=== PATIENT | female | born 1960 ===

== ENCOUNTER 2016-12-23 13:08 | Emergency (ER) | payer OTHER ==
[2016-12-23 13:09] VITALS: BMI 29.0
[2016-12-23 13:13] VITALS: BP 141/80; PULSE 83; RESP 16; TEMP 98.8; O2SAT 100
--- NOTE | 2016-12-23 13:50 | ED PDOC ---
HPI: General Adult Time Seen by Provider: 12/23/16 13:48 Chief Complaint (Nursing): Abdominal Pain Chief Complaint (Provider): VAGINAL PRUIRITIS History Per: Patient (56 Y/O FEMALE [employer] 1 YEAR PRIOR HERE FOR EVALUATION OF VAGINAL DISCHARGE ITCHY/YELLOWISH IN NATURE. DENIES ANY FEVERS/CHILLS. STATES IS SEXUALLY ACTIVE WITH ONLY NO NEW PARTNERS. NO HISTORY OF STD. HAS HAD PAP LAST YEAR WITH EVALUATION OF POLPY. NOTES MINIMAL IRRITATION WITH URINATION. NO HEMATURIA/NO URINARY FREQUENCY.) Past Medical History Reviewed: Historical Data, Nursing Documentation, Vital Signs Vital Signs: Last Vital Signs Temp 98.8 F 12/23/16 13:12 Pulse 83 12/23/16 13:12 Resp 16 12/23/16 13:12 BP 141/80 12/23/16 13:12 Pulse Ox 100 12/23/16 13:12 - Medical History PMH: Hyperthyroidism - Family History Family History: States: No Known Family Hx - Home Medications Home Medications: Ambulatory Orders Medication Instructions Recorded Albuterol HFA [Ventolin HFA 90 1 puff IH ASDIR #1 unit 08/29/16 mcg/actuation (8 g)] Azithromycin [Zithromax] 250 mg PO DAILY #6 tab 08/29/16 Benzonatate 200 mg PO TID PRN #20 capsule 08/29/16 Miconazole Nitrate [Monistat 3] 1 each VG DAILY #1 kit 12/23/16 - Allergies Allergies/Adverse Reactions: Allergies Allergy/AdvReac Type Severity Reaction Status Date / Time No Known Allergies Allergy Verified 12/23/16 13:10 Review of Systems ROS Statement: Except As Marked, All Systems Reviewed And Found Negative Genitourinary Female: Positive for: Vaginal Discharge Physical Exam - Reviewed Nursing Documentation Reviewed: Yes Vital Signs Reviewed: Yes - Physical Exam Appears: Positive for: Well, Non-toxic, No Acute Distress Head Exam: Positive for: ATRAUMATIC, NORMAL INSPECTION, NORMOCEPHALIC Skin: Positive for: Normal Color, Warm, DRY Eye Exam: Positive for: EOMI, Normal appearance, PERRL ENT: Positive for: Normal ENT Inspection Neck: Positive for: Normal, Painless ROM Cardiovascular/Chest: Positive for: Regular Rate, Rhythm Respiratory: Positive for: CNT, Normal Breath Sounds Gastrointestinal/Abdominal: Positive for: Normal Exam, Bowel Sounds, Soft Pelvic Exam: Positive for: Discharge (WHITISH VAGINAL DISCHARGE NOTED NO ODOR NOTED. NO CMT NOTED). Negative for: Bimanual Exam Normal, Mass Back: Positive for: Normal Inspection Extremity: Positive for: Normal ROM Neurologic/Psych: Positive for: Alert, Oriented - Laboratory Results Urine dip results: Positive for: Leukocyte Esterase. Negative for: Blood, Nitrate, Ketones, Glucose, Bilirubin, Protein (TRACE LEUKOCYTE ESTERASE) - ECG O2 Sat by Pulse Oximetry: 100 Disposition - Clinical Impression Clinical Impression: Vaginitis - Patient ED Disposition Is Patient to be Admitted: No - Disposition Disposition: Routine/Home Disposition Time: 13:50 Condition: FAIR Prescriptions: Miconazole Nitrate [Monistat 3] 1 each VG DAILY #1 kit Instructions: Vaginitis (ED)
== END 2016-12-23 14:09 | disposition home or self-care (01) ==
LOC: EDBD 13:08 → H.ER 13:08
DX: N76.0 Acute vaginitis (principal); R10.9 Unspecified abdominal pain; E05.90 Thyrotoxicosis, unspecified without thyrotoxic crisis or storm

== ENCOUNTER 2016-12-28 15:28 | Emergency (ER) | payer OTHER ==
[2016-12-28 15:28] VITALS: BMI 29.0
[2016-12-28 15:53] VITALS: TEMP 98
--- NOTE | 2016-12-28 17:07 | RAD ---
PROCEDURE: Radiographs of the chest and abdomen (obstructive series) HISTORY: abd pain r/o sbo COMPARISON: None available FINDINGS: CHEST: The cardiomediastinal silhouette appears within normal limits. No focal consolidation, significant pleural effusion, or definite pneumothorax identified. Scattered probable calcified granulomas.Please note that chest x-ray has limited sensitivity for the detection of pulmonary masses. ABDOMEN AND PELVIS: Mild constipation. Overall paucity of bowel gas. No finding to suggest obstruction. No definite free air. Degenerative changes of the spine. IMPRESSION: Mild constipation.
[2016-12-28 18:00] VITALS: BP 134/88; PULSE 63; RESP 16
[2016-12-28 18:01] VITALS: O2SAT 98
--- NOTE | 2016-12-28 18:07 | ED PDOC ---
HPI: Abdomen Time Seen by Provider: 12/28/16 16:06 Chief Complaint (Nursing): Abdominal Pain Chief Complaint (Provider): Abdominal Pain History Per: Patient History/Exam Limitations: no limitations Onset/Duration Of Symptoms: Days (x1week) Associated Symptoms: Constipation (Mild). denies: Diarrhea Additional History Per: Patient Additional Complaint(s): Maggie Wells is a 56 year old female with past medical history of hyperthyroidism who presents to the ED with a chief complaint of abdominal pain associated with vaginal bleeding that was onset since 1 week prior to arrival. Patient presented to the ED on December 25 initially and was prescribed progestin. Patient reports that bleeding has stopped but the abdominal pain still persists and feels bloated. Patient denies any fever, chills, diarrhea or urinary symptoms but feels mildly constipated. Patient is in the process of applying for [facility] so she can make an appointment with [facility]. Abnormal Vaginal Bleeding: Yes Past Medical History Reviewed: Historical Data, Nursing Documentation, Vital Signs Vital Signs: Last Vital Signs Temp 98.0 F 12/28/16 15:50 Pulse 63 12/28/16 18:00 Resp 16 12/28/16 18:00 BP 134/88 12/28/16 18:00 Pulse Ox 98 12/28/16 18:35 - Medical History PMH: Hyperthyroidism - Surgical History Surgical History: No Surg Hx - Family History Family History: States: Unknown Family Hx - Home Medications Home Medications: Ambulatory Orders Medication Instructions Recorded Miconazole Nitrate [Monistat 3] 1 each VG DAILY #1 kit 12/23/16 MedroxyPROGESTERone [Provera] 1 tab PO DAILY #10 tab 12/25/16 Naproxen [Naprosyn] 1 tab PO BID PRN #60 tab 12/28/16 Polyethylene Glycol 3350 [Miralax] 17 gm PO DAILY PRN #1 bottle 12/28/16 - Allergies Allergies/Adverse Reactions: Allergies Allergy/AdvReac Type Severity Reaction Status Date / Time No Known Allergies Allergy Verified 12/23/16 13:10 Review of Systems ROS Statement: Except As Marked, All Systems Reviewed And Found Negative Gastrointestinal: Positive for: Constipation (Mild). Negative for: Diarrhea Physical Exam - Reviewed Nursing Documentation Reviewed: Yes Vital Signs Reviewed: Yes - Physical Exam Appears: Positive for: Well, No Acute Distress Head Exam: Positive for: ATRAUMATIC, NORMAL INSPECTION, NORMOCEPHALIC Skin: Positive for: Warm, Dry. Negative for: Pallor Eye Exam: Positive for: EOMI, PERRL ENT: Negative for: Pharyngeal Erythema, Tonsillar Exudate Neck: Positive for: Painless ROM, Supple Cardiovascular/Chest: Positive for: Regular Rate, Rhythm, Chest Non Tender. Negative for: Bradycardia, Tachycardia Respiratory: Positive for: Normal Breath Sounds. Negative for: Wheezing, Respiratory Distress Gastrointestinal/Abdominal: Positive for: Normal Exam, Soft. Negative for: Tenderness, Mass, Distended, Guarding, Rebound Back: Positive for: Normal Inspection. Negative for: L CVA Tenderness, R CVA Tenderness Extremity: Positive for: Normal ROM. Negative for: Deformity Lymphatic: Negative for: Adenopathy Neurologic/Psych: Positive for: Alert. Negative for: Motor/Sensory Deficits - ECG O2 Sat by Pulse Oximetry: 98 (RA) Pulse Ox Interpretation: Normal Medical Decision Making Medical Decision Makin: Initial Impression: Abdominal pain Initial Plan: * U Dip * U-Dip * Obstructive series * Ketorolac Toradol 20mg * Re-Eval 1800: PROCEDURE: Radiographs of the chest and abdomen (obstructive series) HISTORY: abd pain r/o sbo COMPARISON: None available FINDINGS: CHEST: The cardiomediastinal silhouette appears within normal limits. No focal consolidation, significant pleural effusion, or definite pneumothorax identified. Scattered probable calcified granulomas.Please note that chest x- ray has limited sensitivity for the detection of pulmonary masses. ABDOMEN AND PELVIS: Mild constipation. Overall paucity of bowel gas. No finding to suggest obstruction. No definite free air. Degenerative changes of the spine. IMPRESSION: Mild constipation. DW pt findings. Scribe Attestation: Documented by Roma Paz acting as a scribe for Dr. Bre Hampton MD. Provider Scribe Attestation: All medical record entries made by the Scribe were at my direction and personally dictated by me. I have reviewed the chart and agree that the record accurately reflects my personal performance of the history, physical exam, medical decision making, and the department course for this patient. I have also personally directed, reviewed, and agree with the discharge instructions and disposition. Disposition - Clinical Impression Clinical Impression: Abnormal uterine bleeding, Constipation, Abdominal pain - Disposition [facility] Disposition: Routine/Home Disposition Time: 17:00 Condition: STABLE Prescriptions: Naproxen [Naprosyn] 1 tab PO BID PRN #60 tab PRN Reason: Pain Polyethylene Glycol 3350 [Miralax] 17 gm PO DAILY PRN #1 bottle PRN Reason: Constipation Instructions: Constipation (ED), Gas and Bloating (ED), Abdominal Pain (ED) Print Language: POLISH
== END 2016-12-28 18:19 | disposition home or self-care (01) ==
LOC: H.ER 15:28
DX: K59.00 Constipation, unspecified (principal); R10.9 Unspecified abdominal pain; E05.90 Thyrotoxicosis, unspecified without thyrotoxic crisis or storm; R19.7 Diarrhea, unspecified

== ENCOUNTER 2018-07-14 11:48 | Emergency (ER) | payer OTHER ==
[2018-07-14 11:53] VITALS: BMI 28.1
[2018-07-14] MEDS ORDERED: Sodium Chloride 0.9% 1,000 ML IV STA (13:18)
[2018-07-14 13:40] LABS: BASO % 0.9 % (0.0-2.0); EOS # 0.1 K/uL (0.0-0.7); EOS % 1.9 % (0.0-4.0); HEMOGLOBIN 14.9 g/dL (12.0-16.0); LYMPH # 1.9 K/uL (1.0-4.3); MEAN CELL VOLUME 89.4 fl (81.0-99.0); MEAN CORPUSCULAR HEMOGLOBIN 30.2 pg (27.0-31.0); MEAN CORPUSCULAR HGB CONC 33.8 g/dL (33.0-37.0); MONO # 0.3 K/uL (0.0-0.8); MONO % 5.9 % (0.0-10.0); NEUT # 2.5 K/uL (1.8-7.0); NEUT % 52.3 % (50.0-75.0); NRBC % 0.2 % (0.0-0.0); RBC 4.94 Mil/uL (3.80-5.20); RED CELL DISTRIBUTION WIDTH 12.7 % (11.5-14.5); WHITE BLOOD COUNT 4.8 K/uL (4.8-10.8)
[2018-07-14 13:48] LABS: ALB/GLOB RATIO 1.2 (1.0-2.1); BLOOD UREA NITROGEN 19 mg/dl (7-17); CALCIUM 8.9 mg/dL (8.4-10.2); GFR NON-AFRICAN AMERICAN > 60; LIPASE 66 U/L (23-300)
[2018-07-14 13:53] LABS: ALT/SGPT 61 U/L (9-52); AST/SGOT 48 U/L (14-36)
--- NOTE | 2018-07-14 14:01 | ED PDOC ---
HPI: Abdomen Time Seen by Provider: 07/14/18 12:24 Chief Complaint (Nursing): Abdominal Pain Chief Complaint (Provider): RUQ pain for 3 months - Worse today History Per: Patient History/Exam Limitations: no limitations Onset/Duration Of Symptoms: Days Outside of [place] travel?: No Current Symptoms Are (Timing): Still Present Location Of Pain/Discomfort: RUQ Additional Complaint(s): 57 yo female with HTN and gallbladder stones presents for evaluation of RUQ pain. Pt states the pain has been on/off but worse today and states she thinks she needs surgery. PT denies N/V. Pt does not want anything in the ER for pain. Past Medical History Reviewed: Historical Data, Nursing Documentation, Vital Signs Vital Signs: Last Vital Signs Temp 98.4 F 07/14/18 12:26 Pulse 68 07/14/18 12:26 Resp 18 07/14/18 12:26 BP 135/73 07/14/18 12:26 Pulse Ox 99 07/14/18 12:26 - Medical History PMH: Back Problems, Gall Bladder Disease, HTN - Family History Family History: States: Unknown Family Hx - Immunization History Hx Tetanus Toxoid Vaccination: Yes Hx Influenza Vaccination: No Hx Pneumococcal Vaccination: No - Home Medications Home Medications: Ambulatory Orders Medication Instructions Recorded Hydrochlorothiazide [Microzide] 12.5 mg PO DAILY 07/14/18 - Allergies Allergies/Adverse Reactions: Allergies Allergy/AdvReac Type Severity Reaction Status Date / Time sulfamethoxazole Allergy RASH Verified 06/18/18 11:05 trimethoprim Allergy RASH Verified 06/18/18 11:05 Review of Systems ROS Statement: Except As Marked, All Systems Reviewed And Found Negative Constitutional: Negative for: Fever, Chills Gastrointestinal: Positive for: Abdominal Pain. Negative for: Nausea, Vomiting, Diarrhea Skin: Negative for: Rash Neurological: Negative for: Weakness, Numbness Physical Exam - Reviewed Nursing Documentation Reviewed: Yes Vital Signs Reviewed: Yes - Physical Exam Appears: Positive for: Well, Non-toxic, No Acute Distress Head Exam: Positive for: ATRAUMATIC, NORMAL INSPECTION, NORMOCEPHALIC Skin: Positive for: Normal Color, Warm, DRY Eye Exam: Positive for: Normal appearance ENT: Positive for: Normal ENT Inspection Neck: Positive for: Normal, Painless ROM Cardiovascular/Chest: Positive for: Regular Rate, Rhythm Respiratory: Positive for: Normal Breath Sounds. Negative for: Accessory Muscle Use, Respiratory Distress Gastrointestinal/Abdominal: Positive for: Normal Exam, Soft. Negative for: Tenderness, Distended, Guarding, Rebound Back: Positive for: Normal Inspection Extremity: Positive for: Normal ROM Neurologic/Psych: Positive for: Alert, Oriented - Laboratory Results Result Diagrams: 07/14/18 13:30 07/14/18 13:30 - ECG O2 Sat by Pulse Oximetry: 99 Pulse Ox Interpretation: Normal Medical Decision Making Medical Decision Making: US: Date of service: 07/14/2018 PROCEDURE: LIMITED ABDOMEN ULTRASOUND HISTORY: Right upper quadrant abdominal pain. COMPARISON: No prior comparison available. TECHNIQUE: Ultrasonography of the abdomen is in performed capturing right upper quadrant anatomy in longitudinal and transverse projections. Color Doppler technique was utilized as well as grayscale. FINDINGS: Evaluation of the liver reveals increased echogenicity diffusely, suggestive of an infiltrative process such as hepatic steatosis. No focal lesion identified. No definite intrahepatic biliary dilatation identified. The gallbladder is distended with a large calculus identified in the lumen measuring at least 3.1 cm greatest dimension with strong posterior shadowing related. There is a non mobile structure fixed to the anterior wall suspicious for possible polyp or adenomyosis. No significant mural thickening or pericholecystic fluid collection identified. The visualized common bile duct normal caliber 3.3 x 4.2 mm. Images of the right kidney reveal no obstructive uropathy mass or cyst with corticomedullary differentiation poor, possibly on the basis of body habitus. Imaging of the pancreas is compromised due to overlying bowel gas unfortunately. The body appears unremarkable the remainder obscured. IMPRESSION: 1. Cholelithiasis within a distended gallbladder which is otherwise unremarkable. No biliary tree dilatation appreciable exclusive of the gallbladder. 2. Hepatic steatosis or other infiltrative hepatic process. No focal hepatic mass or intrahepatic biliary duct dilatation. 3. Nonfocal right kidney. 4. Body of pancreas is unremarkable the remainder obscured by overlying bowel gas. Disposition - Clinical Impression Clinical Impression: Cholelithiasis - Patient ED Disposition Is Patient to be Admitted: No Counseled Patient/Family Regarding: Diagnosis, Need For Followup - Disposition Referrals: Michi Mccain MD [Staff Provider] - Disposition: Routine/Home Disposition Time: 16:51 Condition: STABLE Additional Instructions: Please follow-up with surgeon. Instructions: Gallstones (DC) Forms: [facility] (Italian) Print Language: SWEDISH
--- NOTE | 2018-07-14 16:07 | US ---
APPROVED REPORT Date of service: 07/14/2018 EKG Measurement Heart [id number] <Conclusion> Normal sinus rhythm Normal ECG
[2018-07-15 00:10] VITALS: BP 133/68; PULSE 81; RESP 18; TEMP 98.5; O2SAT 99
== END 2018-07-14 17:25 | disposition home or self-care (01) ==
LOC: H.ER 11:48
DX: K80.20 Calculus of gallbladder without cholecystitis without obstruction (principal); I10 Essential (primary) hypertension; Z88.2 Allergy status to sulfonamides; Z79.899 Other long term (current) drug therapy